=== PATIENT | female | born 1960 | race Caucasian/White ===

== ENCOUNTER → 2021-04-24 | Outpatient (CLI) | payer OTHER | LOC: ECHO 11:54 → NM 13:00 | DX: I25.10 Atherosclerotic heart disease of native coronary artery without angina pectoris (principal); R06.09 Other forms of dyspnea | CPT/HCPCS: ECHO; 78452; 93306; A9502; J2785 ==

== ENCOUNTER 2021-06-10 16:00 | Emergency (ER) | payer OTHER ==
[2021-06-10 16:41] LABS: HEMOGLOBIN 14.3 gm/dl (12.3-15.3); RED BLOOD COUNT 4.73 M/UL (4.00-5.10); WHITE BLOOD COUNT 13.7 K/UL (4.5-11.0)
[2021-06-10 17:08] LABS: BUN/CREATININE RATIO 9 (0-10)
== END 2021-06-10 19:48 | disposition home or self-care (01) ==
LOC: ER1 16:00
PROVIDERS: Emergency Medicine
DX: R07.9 Chest pain, unspecified (principal); I10 Essential (primary) hypertension; F17.210 Nicotine dependence, cigarettes, uncomplicated
CPT/HCPCS: 71045; 80053; 82550; 82553; 83874; 84484; 85025; 85379; 85610; 85730; 93005; 99285

== ENCOUNTER → 2021-06-12 | Outpatient (CLI) | payer OTHER ==
[2021-06-12 14:37] LABS: HEMOGLOBIN 13.8 gm/dl (12.3-15.3); RED BLOOD COUNT 4.62 M/UL (4.00-5.10); WHITE BLOOD COUNT 14.3 K/UL (4.5-11.0)
[2021-06-13 07:12] LABS: CALCIUM, SERUM 9.2 mg/dL (8.7-10.3); CREATININE, SERUM 0.97 mg/dL (0.57-1.00); POTASSIUM, SERUM 4.4 mmol/L (3.5-5.2)
== END ==
LOC: LAB 14:07
PROVIDERS: Internal Medicine Interventional Cardiology
DX: Z01.818 Encounter for other preprocedural examination (principal); R94.39 Abnormal result of other cardiovascular function study; I30.0 Acute nonspecific idiopathic pericarditis; R07.89 Other chest pain; I10 Essential (primary) hypertension; G47.33 Obstructive sleep apnea (adult) (pediatric); I48.0 Paroxysmal atrial fibrillation; I31.3 Pericardial effusion (noninflammatory); R06.02 Shortness of breath
CPT/HCPCS: 36415; 80048; 85025; 85610; 85730; 93005

== ENCOUNTER → 2021-06-25 | Outpatient (CLI) | payer OTHER ==
[~2021-06-25] MED LIST: BAYER CHEWABLE81 MG PO; CLARITIN10 M2 PO; DEXILANT60 MG PO; HYDROCODON-ACE1 EAC4 PO; ISOSORBIDE MONO30 MG PO; LEVOTHYROXINE137 MC1 PO; LIPITOR40 MG PO; NASONEX17 GM; SINGULAIR10 MG PO; TOPROL XL 25 MG25 MG PO; ZYRTEC10 MG PO
== END ==
LOC: CATH 08:41
DX: I25.10 Atherosclerotic heart disease of native coronary artery without angina pectoris (principal); I48.0 Paroxysmal atrial fibrillation; I10 Essential (primary) hypertension; M06.9 Rheumatoid arthritis, unspecified; Z98.61 Coronary angioplasty status; F17.200 Nicotine dependence, unspecified, uncomplicated; Z88.5 Allergy status to narcotic agent; Z79.82 Long term (current) use of aspirin; Z20.822 Contact with and (suspected) exposure to COVID-19
CPT/HCPCS: 93571; 99152; 99153; J0153; J1644; J2250; J3010; J7030; Q9967